=== PATIENT | female | born 1955 | race Two or more races ===

== ENCOUNTER 2018-09-15 08:59 | Inpatient (IN) | payer OTHER ==
[~2018-09-15] VITALS: Ht 165.1 cm; Wt 61.2 kg
[2018-09-15] MEDS ORDERED: KEPPRA100 MG/1 M (09:14)
== END 2018-09-18 09:40 | disposition designated cancer center or children's hospital (05) | DRG 310 ==
LOC: ER 08:59 → ICU 19:33
PROVIDERS: ADMIT Internal Medicine
PROC: BW28ZZZ Computerized Tomography (CT Scan) of Head (ICD-10-PCS; principal; 2018-09-15)
PROC: 02HV33Z Insertion of Infusion Device into Superior Vena Cava, Percutaneous Approach (ICD-10-PCS; 2018-09-15)
PROC: BW28ZZZ Computerized Tomography (CT Scan) of Head (ICD-10-PCS; 2018-09-16)
PROC: BW28Y0Z Computerized Tomography (CT Scan) of Head using Other Contrast, Unenhanced and Enhanced (ICD-10-PCS; 2018-09-16)
DX: I44.2 Atrioventricular block, complete (principal); G44.209 Tension-type headache, unspecified, not intractable

== ENCOUNTER 2024-08-14 05:46 | Day surgery (SDC) | payer OTHER ==
[2024-08-08 08:25] LABS: HEMATOCRIT 39.2 % (36.0-45.00); MEAN CELL VOLUME 84.9 fL (80.00-100.00); MEAN CORPUSCULAR HEMOGLOBIN 28.1 pg (27.00-32.0); MEAN CORPUSCULAR HGB CONC 33.1 g/dl (32.0-36.0); PLATELET COUNT 282 K/uL (150-450); RED BLOOD COUNT 4.62 M/uL (4.00-6.00); RED CELL DISTRIBUTION WIDTH 14.2 % (11.5-14.5)
[2024-08-08 08:33] LABS: PH,URINE 6.5 (5.0-8.0); URINE APPEARANCE Clear; URINE BILIRRUBIN Negative (NEGATIVE); URINE BLOOD Negative; URINE COLOR Yellow; URINE GLUCOSE Negative (NEGATIVE); URINE KETONE Negative (NEGATIVE); URINE LEUKOCYTE Small; URINE NITRATE Negative; URINE PROTEIN Negative (NEGATIVE); URINE UROBILINOGEN 0.2 E.U./dl
[2024-08-08 08:38] LABS: URINE BACTERIA 42.8 uL (0.0-1933); URINE EPITHELIAL CELLS 11.4 uL (0.0-38.8); URINE RBC 2.5 uL (0.0-20.8); URINE WBC 73.2 uL (0.0-23.2)
[2024-08-08 09:13] LABS: INR 0.99; PARTIAL THROMBOPLASTIN TIME 27.1 SECONDS (22.0-34.0); PROTHROMBIN TIME 10.8 SECONDS (9.0-11.5)
[2024-08-08 09:21] LABS: ALBUMIN 3.6 gm/dL (3.4-5.0); BILIRUBIN TOTAL 0.44 mg/dL (0.3-1.2); CALCIUM 9.1 mg/dL (8.5-10.1); CREATININE SERUM 0.66 mg/dL (0.55-1.02); GFR 88.8; GLOBULINA 3.1 G/DL (2.4-3.5); POTASSIUM 4.05 mEq/L (3.5-5.1); TOTAL PROTEIN 6.7 gm/dL (6.4-8.2)
[~2024-08-14 05:46] MED LIST: ATENOLOL; ATORVASTATIN CA40 MG; KEPPRA100 MG/1 M
[2024-08-14] MEDS ORDERED: CEFAZOLIN SODIUM 1,000 MG VIAL IV ONE (10:45)
[2024-08-14] MEDS ORDERED: MORPHINE SULFATE 4 MG/ML VIAL IV ONE ×2 (12:30→13:00)
[2024-08-14] MEDS ORDERED: ONDANSETRON HCL 2 MG/ML VIAL IV ONE (12:55)
[2024-08-14] MEDS ORDERED: ENALAPRILAT DIHYDRATE 1.25 MG/ML VIAL IV ONE (13:45)
== END 2024-08-14 14:35 | disposition home or self-care (01) ==
LOC: CIR.AMB 05:46
PROVIDERS: ATTEND Obstetrics & Gynecology
DX: D25.0 Submucous leiomyoma of uterus (principal); N84.0 Polyp of corpus uteri; N95.0 Postmenopausal bleeding